=== PATIENT | male | born 1955 | race American Indian/Alaskan Native ===

== ENCOUNTER 2017-09-19 18:00 | Emergency (ER) | payer MEDICAID ==
[2017-09-19 18:00] VITALS: BMI 23.6
[2017-09-19 18:04] VITALS: TEMP 98.7
[2017-09-19 18:07] VITALS: RESP 12
[2017-09-19] MEDS ORDERED: Naloxone 0.4 mg/ml Inj (Adult) IM STA (18:32)
--- NOTE | 2017-09-19 18:40 | ED PDOC ---
HPI: Psych/Substance Abuse Time Seen by Provider: 09/19/17 18:11 Chief Complaint (Nursing): Substance Abuse Chief Complaint (Provider): Substance Abuse ED Caveat: Acuity of Condition History Per: Patient, EMS History/Exam Limitations: intoxication Current Symptoms Are (Timing): Still Present Additional Complaint(s): 62 y/o male with a pmhx of asthma and HTN, brought in by EMS for evaluation of substance abuse. [place] is minimally responsive and appears under the influence. In the field patient reportedly had pinpoint pupils. He admits he did drink today, but denies any drug use today. Patient has a positive history of heroin use. Patient denies any complaints at this time. History limited by clinical condition. No reports of trauma at this time. PMD: [place] Past Medical History Reviewed: Historical Data, Nursing Documentation, Vital Signs Vital Signs: Last Vital Signs Temp 98.7 F 09/19/17 18:02 Pulse 68 09/19/17 18:02 Resp 12 09/19/17 18:02 BP 121/67 09/19/17 18:02 Pulse Ox 94 L 09/19/17 18:02 - Medical History PMH: Asthma, HTN - Surgical History Other surgeries: Right knee replacement - Family History Family History: States: Unknown Family Hx - Social History Current smoker - smoking cessation education provided: Yes Alcohol: Other ("most days") Drugs: Opiates (heroin) - Home Medications Home Medications: Ambulatory Orders Medication Instructions Recorded No Known Home Med 08/09/16 - Allergies Allergies/Adverse Reactions: Allergies Allergy/AdvReac Type Severity Reaction Status Date / Time No Known Allergies Allergy Verified 09/19/17 18:02 Review of Systems Review Of Systems: ROS cannot be obtained secondary to pt's inabilty to answer questions. Physical Exam - Reviewed Nursing Documentation Reviewed: Yes Vital Signs Reviewed: Yes - Physical Exam Comments: GENERAL APPEARANCE: Patient is somnolent, responsive to painful stimuli, in mild respiratory distress. Speech slurred. EYES: (+) pinpoint pupils ENMT: Mucous membranes moist. Airway patent: (-) stridor. NECK: FROM, Supple CHEST AND RESPIRATORY: Poor inspiratory effort, shallow breaths; breath sounds decreased bilaterally. HEART AND CARDIOVASCULAR: (-) irregularity; (-) murmur, (-) gallop. ABDOMEN: Soft, (-) distention, (-) tenderness, (-) guarding. NEURO AND PSYCH: Mental status as above. (-) facial asymmetry - ECG O2 Sat by Pulse Oximetry: 94 (RA) Pulse Ox Interpretation: Abnormal Medical Decision Making Medical Decision Making: Impression: Heroin abuse Plan: --Alcohol serum --Drug screen --Glucose, POC --Narcan 0.4mg IM --cardiac monitor --O2 via NC --Reevaluation Accucheck: 116 EKG: NSR at 62 bpm, no ST elevations, QTC 410 2000 Case endorsed to Prosper Arango PA-C pending re-evaluation, clinical sobriety, lab results, and further disposition. Scribe Attestation: Documented by Daniel Chung, acting as a scribe for RAMYA Ernandez. Provider Scribe Attestation: All medical record entries made by the Scribe were at my direction and personally dictated by me. I have reviewed the chart and agree that the record accurately reflects my personal performance of the history, physical exam, medical decision making, and the department course for this patient. I have also personally directed, reviewed, and agree with the discharge instructions and disposition. Disposition - Clinical Impression Clinical Impression: Heroin abuse - Patient ED Disposition Is Patient to be Admitted: Transfer of Care (Case endorsed to Prosper Arango PA-C pending re-evaluation, clinical sobriety, lab results, and further disposition.) - Disposition Disposition: Transfer of Care (Case endorsed to Prosper Arango PA-C pending re- evaluation, clinical sobriety, lab results, and further disposition.) Disposition Time: 20:00 Condition: FAIR - POA Present On Arrival: None Results - Lab Results Lab Results: 09/19/17 09/19/17 19:03 18:31 POC Glucose (mg/dL) 116 H Alcohol, Quantitative 123 H
[2017-09-19] MEDS ORDERED: Naloxone 0.4 mg/ml Inj (Adult) ONE (19:04)
[2017-09-19 20:09] VITALS: BP 120/63; PULSE 63; O2SAT 98
--- NOTE | 2017-09-19 22:01 | ED PDOC ---
- ECG O2 Sat by Pulse Oximetry: 98 - Progress ED Course And Treament: Patient noted to have clinical sobriety. Eating in ED. Disposition - Clinical Impression Clinical Impression: Heroin abuse - POA Present On Arrival: None - Disposition Referrals: [facility] [Outside] Disposition: Routine/Home Disposition Time: 21:56 Condition: FAIR Prescriptions: Naloxone [Narcan] 0.4 mg IM ONCE PRN #1 vial PRN Reason: Opiate Reversal Instructions: Narcotic Overdose (DC)
--- NOTE | 2017-09-21 09:57 | CARD ---
APPROVED REPORT EKG Measurement Heart [id number] <Conclusion> Normal sinus rhythm Nonspecific ST and T wave abnormality Abnormal ECG
== END 2017-09-19 22:46 | disposition left against medical advice (07) ==
LOC: H.ER 18:00
DX: F11.10 Opioid abuse, uncomplicated (principal); F17.200 Nicotine dependence, unspecified, uncomplicated; I10 Essential (primary) hypertension; J45.909 Unspecified asthma, uncomplicated; Z96.651 Presence of right artificial knee joint
CPT/HCPCS: 80320; 82948; 93005; 96372; 99283; J2310